=== PATIENT | female | born 1970 | race Caucasian/White ===

== ENCOUNTER 2018-09-25 18:27 | Emergency (ER) | payer SELFPAY ==
[~2018-09-25] VITALS: Ht 160 cm; Wt 54.5 kg
[2018-09-25 18:45] VITALS: BP 146/92
[2018-09-25] MEDS ORDERED: ACET-2247 PO (18:52)
[2018-09-25] MEDS ORDERED: IBUP200C5 PO (18:52)
[2018-09-25] MEDS ORDERED: NAPR250T4 PO (18:52)
== END 2018-09-25 19:30 | disposition left against medical advice (07) ==
LOC: EMS 18:27
DX: Z53.21 Procedure and treatment not carried out due to patient leaving prior to being seen by health care provider (principal)

== ENCOUNTER 2018-11-30 17:28 | Emergency (ER) | payer OTHER ==
[~2018-11-30] VITALS: Ht 160 cm; Wt 54.5 kg
[~2018-11-30 17:28] MED LIST: ACET-2247 PO; IBUP200C5 PO; NAPR250T4 PO
[2018-11-30] MEDS ORDERED: CELE100 PO (17:53)
[2018-11-30] MEDS ORDERED: ACETAMINOPHEN 500 MG TABLET PO ONE (18:30)
[2018-11-30] MEDS ORDERED: DEXAMETHASONE SOD PHOS 4 MG/ML 5 ML VIAL IM ONE (18:30)
[2018-11-30 19:55] VITALS: BP 128/80
== END 2018-11-30 20:14 | disposition home or self-care (01) ==
LOC: EMS 17:28
DX: S39.012A Strain of muscle, fascia and tendon of lower back, initial encounter (principal); G89.29 Other chronic pain; F17.210 Nicotine dependence, cigarettes, uncomplicated; Z88.6 Allergy status to analgesic agent; X58.XXXA Exposure to other specified factors, initial encounter; Y93.89 Activity, other specified; Y92.89 Other specified places as the place of occurrence of the external cause; Y99.8 Other external cause status
CPT/HCPCS: 96372; 99283; J1100

== ENCOUNTER → 2019-01-13 | Outpatient (CLI) | payer MEDICAID ==
[~2019-01-13] MED LIST changes: -ACET-2247 PO; +CELE100 PO; -IBUP200C5 PO; -NAPR250T4 PO
== END | disposition home or self-care (01) ==
LOC: RADPV 15:36
PROVIDERS: ATTEND Internal Medicine
DX: M47.816 Spondylosis without myelopathy or radiculopathy, lumbar region (principal); M47.812 Spondylosis without myelopathy or radiculopathy, cervical region; M40.46 Postural lordosis, lumbar region
CPT/HCPCS: 72040; 72100

== ENCOUNTER 2019-01-17 12:45 | Emergency (ER) | payer MEDICAID ==
[~2019-01-17] VITALS: Ht 162.6 cm; Wt 67.3 kg
[2019-01-17] MEDS ORDERED: HYDROCODONE/ACETAMINOPHEN 5-325 MG TABLET PO ONE (13:30)
[2019-01-17 14:20] VITALS: BP 132/79
== END 2019-01-17 14:00 | disposition home or self-care (01) ==
LOC: EMS 12:46
DX: M54.5 Low back pain (principal); G89.29 Other chronic pain; M54.2 Cervicalgia; F17.210 Nicotine dependence, cigarettes, uncomplicated; Z90.710 Acquired absence of both cervix and uterus; Z88.6 Allergy status to analgesic agent; Z88.5 Allergy status to narcotic agent; Z88.8 Allergy status to other drugs, medicaments and biological substances
CPT/HCPCS: 99406